=== PATIENT | male | born 2000 | race African-American/Black ===

== ENCOUNTER 2025-11-02 19:51 | Emergency (ER) | payer MEDICAID, SELFPAY ==
[2025-11-02 20:10] VITALS: BP 137/85; PULSE 85; RESP 18; TEMP 36.9; O2SAT 98; BMI 28.8
[2025-11-02 21:07] LABS: PCR FLU A POSITIVE PCR FLU A (Negative); PCR FLU B Negative PCR FLU B (Negative); PCR RSV Negative PCR RSV (Negative); SARS PCR* Negative SARS-CoV-2 (Negative)
--- NOTE | 2025-11-02 21:37 | ED.FEVER ---
HPI - Fever General Date Seen: 11/02/25 Chief Complaint: Cough Stated Complaint: chest pains/ coughing/ runny nose Time Seen by Provider: 11/02/25 21:06 Source: patient, family, RN notes reviewed and old records reviewed Mode of arrival: ambulatory Limitations: no limitations History of Present Illness HPI Narrative: Pleasant 25-year-old gentleman presents here with a cough runny nose some chest congestion and a fever by history of home, he has not taken his temperature, he has been on off sick for the last 2 weeks, with this no diarrhea no nausea vomiting eating and drinking normally, the coughing has been for approximately 2 5 days. Sister at home is sick also he did not receive influenza vaccine this year were COVID vaccine. On no chronic medications, no known allergies. MD elicited complaint: fever Associated symptoms: rhinorrhea, nasal congestion and cough Treatments prior to arrival fever: none Related Data Home Medications ?Medication ?Instructions ?Recorded ?Confirmed No Known Home Medications 11/02/25 11/02/25 Allergies Allergy/AdvReac Type Severity Reaction Status Date / Time No Known Drug Allergies Allergy Verified 11/02/25 20:14 Review of Systems Status of ROS Reports: 10 or more systems reviewed and unremarkable except as noted in History and below Exam Narrative Exam Narrative: Patient is seen in room 2 he is in no apparent distress he is pleasant alert his vital signs are old reasonable. Speaking to me in full sentences nontoxic pupils equal round reactive to light there is no scleral icterus redness is TMs are normal his oropharynx is normal there is no adenopathy anterior posterior chains his chest is good air entry bilaterally no wheezing crackles noted heart sounds are normal, abdomen is soft there is no guarding no organomegaly bowel sounds are normal, he is able to move all his extremities independently and well. Const Vital Signs, click to edit/add: Vital Signs - 24 hr 11/02/25 20:10 Temperature 98.5 F Pulse Rate [Pulse Oximeter] 85 Respiratory Rate 18 Blood Pressure [Right Upper Arm] 137/85 Pulse Oximetry 98 Oxygen Delivery Method Room Air Course Vital Signs Vital signs: Initial Vital Signs Temperature 98.5 F 11/02/25 20:10 Temperature Source Temporal Artery Scan 11/02/25 20:10 Pulse Rate 85 11/02/25 20:10 Pulse Rhythm Regular 11/02/25 20:10 Respiratory Rate 18 11/02/25 20:10 Blood Pressure 137/85 11/02/25 20:10 Blood Pressure Mean 102 11/02/25 20:10 Blood Pressure Position Sitting 11/02/25 20:10 Pulse Oximetry 98 11/02/25 20:10 Oxygen Delivery Method Room Air 11/02/25 20:10 Vital Signs Temperature 98.5 F 11/02/25 20:10 Pulse Rate 85 11/02/25 20:10 Respiratory Rate 18 11/02/25 20:10 Blood Pressure 137/85 11/02/25 20:10 Pulse Oximetry 98 11/02/25 20:10 Oxygen Delivery Method Room Air 11/02/25 20:10 Temperature 98.5 F 11/02/25 20:10 Pulse Rate 85 11/02/25 20:10 Respiratory Rate 18 11/02/25 20:10 Blood Pressure 137/85 11/02/25 20:10 Pulse Oximetry 98 11/02/25 20:10 Oxygen Delivery Method Room Air 11/02/25 20:10 MDM - Fever MDM Narrative Medical decision making narrative: Differential diagnosis include a viral upper respiratory illness, histoplasmosis, tuberculosis, pneumonia, COPD exacerbation, emphysema, strep throat illness, bronchitis, asthma, reactive airway disease, chronic cough, medication side effects, allergic rhinitis with postnasal drip, foreign body aspiration, aspiration pneumonia, bronchiolitis, and gastroesophageal reflux disease as well as multiple other considerations. His rapid test for influenza a is positive, this is consistent with that. Since he has been sick for 5 days or more he is not a candidate for Tamiflu, we talked about signs and symptoms of worsening he should re-presented if these occur, but I think rate now home rest not giving it to anyone else lots of fluids Tylenol plus or minus ibuprofen. Noted for a chest x-ray, with normal vital signs and no findings on auscultation. Medical Records Attestation: I reviewed the patient's medical records. Lab Data Labs: Lab Results 11/02/25 Range/Units 20:23 SARS-CoV-2 (PCR) Negative SARS-CoV-2 (Negative) Influenza Type A (PCR) POSITIVE PCR FLU A A (Negative) Influenza Type B (PCR) Negative PCR FLU B (Negative) RSV (PCR) Negative PCR RSV (Negative) Discharge Plan Discharge Clinical Impression: Influenza A Patient Disposition: Home, Self-Care Condition: Stable Instructions: Influenza (ED) Additional Instructions: Home rest Tylenol ibuprofen, try not to get anyone else sick, this usually runs a course of 7-10 days, increasing chest pain shortness of breath or fevers, would meet make me think is secondary pneumonia then you will need to come back and be seen. Activity Level: Light activity Discharge Diet: Regular Prescriptions: No Action No Known Home Medications Stand Alone Forms: MyHealth Info Instructions
== END 2025-11-02 22:13 | disposition home or self-care (01) ==
LOC: ED 21:55
PROVIDERS: Emergency Provider Family Medicine
DX: J10.1 Influenza due to other identified influenza virus with other respiratory manifestations (principal)
CPT/HCPCS: 87631; 99283; 99284